=== PATIENT | female | born 1960 | race Caucasian/White ===

== ENCOUNTER 2024-11-06 15:56 | Emergency (ER) | payer MEDICARE, OTHER, SELFPAY ==
[2024-11-06 16:14] VITALS: BP 149/96
--- NOTE | 2024-11-06 16:21 | ED.GENMED ---
ED Provider Triage
<Tawanda Mancia PA-C - Last Filed: 11/06/24 16:22>
-
Patient seen by provider in Triage?: Seen in Triage
Attestation: A medical screening examination has been initiated by a qualified medical provider. Based on the assessment performed at this time, it has been determined that an emergent medical condition may exist and the patient has been informed
that further medical evaluation and possible additional diagnostic testing may be needed.
HPI: 63-year-old female with history of MS prior appendectomy and cholecystectomy presents with sharp pain to the right flank that radiates to the right lower abdomen. She straight cath several times a day. She denies fevers or chills. She denies
any change in the urine appearance. Consider renal colic versus pyelonephritis versus UTI started labs urinalysis and order noncontrast CT of abdomen and pelvis
GENERAL: Alert , in no apparent distress
EYE: No visual abnormalities.
NECK: Trachea midline
ENT: No visible abnormalities.
LUNGS: No acute respiratory distress
NEUROLOGICAL: Alert and oriented
SKIN: Skin intact. No visible changes.
MUSCULOSKELETAL: Moving extremities normally
PSYCH: Normal and appropriate interaction.
This is a medical evaluation conducted in person to initiate diagnostic evaluation and provide initial therapeutics. Please see further documentation by the treating clinician.
History of Present Illness
<Tawanda Mancia PA-C - Last Filed: 11/06/24 16:22>
General
Chief Complaint: Abdominal Pain
Time Seen by Provider: 11/06/24 21:06
<Guille Mendez DO - Last Filed: 11/06/24 22:42>
History of Present Illness
History of Present Illness:
TIME OF INITIAL ENCOUNTER: 9:10 PM
HPI: The patient presents due to rather severe pain in the right side of the lower abdomen/inguinal region. Of note the patient did have a rash to the bilateral lumbar region and there was some concern for the possibly shingles. That rash is
nearly completely resolved. Last night, the pain became really severe. The pain worsened when she abducts the right lower extremity at the hip when she was trying to self cath (history of MS).
EXAM:
GENERAL: The patient appears uncomfortable and primarily prefers to lay on her left side
HEENT: Moist oral mucosa
CARDIOVASCULAR: No murmurs, normal heart rate, regular rhythm, No chest wall tenderness
PULMONARY: No respiratory distress, breath sounds are clear and equal
ABDOMEN: Soft with no peritoneal signs, moderate tenderness to the entire right side of the abdomen and lower abdomen tenderness
NEUROLOGIC: Fair strength all extremities, no coordination deficits
PSYCHIATRIC: Appropriate mental status, normal insight and judgement
EXTREMITIES: Nontender, no edema, moves all extremities equally, borderline positive straight leg raise on the right when she does have pain with passive range of motion and active range of motion at the right hip
SKIN: Scant pustules noted to the lumbar region, no significant skin lesions to the anterior abdominal wall
NUMBER AND COMPLEXITY OF PROBLEMS ADDRESSED AT THE ENCOUNTER
� Chronic conditions affecting care: MS, has had PE, high blood pressure, has had VT
� Acute Exacerbation and/or Progression of Chronic Illness: This is an acute problem
� Differential Diagnosis includes: Ureteral stone, UTI, pyelonephritis, musculoskeletal etiology
AMOUNT AND/OR COMPLEXITY OF DATA TO BE REVIEWED AND ANALYZED
� I performed an independent evaluation of and my interpretation is:
EKG:
CT: CAT scan of the abdomen pelvis showed no clear cause for her pain. A small hiatal hernia was noted. She has had cholecystectomy. Diverticulosis is noted with no sign of diverticulitis.
X-rays:
Laboratory Studies: White count 3.5, hemoglobin normal, chemistries unremarkable, positive nitrite but only 0-2 white cells
Other:
� Review of other/old records: I reviewed records, the patient had endoscopy in 2022
� Clinical information was obtained by an independent historian: None needed
� Prescriptions/Medications Considered but not given: Offered and considered narcotic analgesia of the patient declines
� Further testing considered but not performed:
RISK OF COMPLICATIONS AND/OR MORBIDITY OR MORTALITY OF PATIENT MANAGEMENT
� Social determinants of health affecting care:Lives at home, drove herself here, uses a cane
� Discussion with other providers:
� Escalation of care including admission/observation vs risk of discharge considered: The cause of patient's symptoms is unclear. She has been trying ibuprofen at home without improvement. Will give a dose of IM Toradol here.
Given the possibility of an orthopedic etiology, have given her the contact information for local Ortho
ANY OTHER UPDATES:
Phy Exam
<Guille Mendez DO - Last Filed: 11/06/24 22:42>
Physical Exam
Physical Exam:
See HPI
Course
<Tawanda Mancia PA-C - Last Filed: 11/06/24 16:22>
Orders/Labs/Results
Orders:
Orders
11/06/24 16:20
CT Abd/pel Without Iv Or Oral Urgent
Comment:
Reason For Exam: right flank pain
11/06/24 16:26
Ondansetron Orally Disint [Zofran Odt (Orally Disintegrating)] 4 mg PO NOW STA
11/06/24 16:27
Ondansetron Orally Disint [Zofran Odt (Orally Disintegrating)] 4 mg .ROUTE .STK-MED ONE
11/06/24 16:32
Complete Blood Count/With Diff Urgent
Comprehensive Metabolic Panel Urgent
11/06/24 20:03
Urinalysis Reflex To Culture Urgent
Date Specimen was Collected: 11/06/24
Time Specimen was Collected: 20:00
Urine Microscopic Reflex Cult Urgent
Urine Culture Urgent
THAD Source: U
Specimen Description:
Date Specimen was Collected: 11/06/24
Time Specimen was Collected: 20:00
11/06/24 21:30
Ketorolac [Toradol] 30 mg IM NOW STA
Abnormal Lab Results
11/06/24 11/06/24
16:32 20:03
WBC 3.5 L 10^3/uL
(4.8-10.8)
Absolute Lymphs (auto) 0.7 L 10^3/uL
(1.2-3.4)
Lymphocytes % 19.3 L %
(20.5-51.1)
BUN 25 H mg/dl
(7-17)
Total Protein 8.3 H g/dl
(6.3-8.2)
Urine Nitrite (Reflex) Positive A
(Negative)
Urine Bacteria (Reflex) Many A
(Negative)
11/06/24 16:32
11/06/24 16:32
Vital Signs
Initial and Last Documented VS:
Initial Vital Signs
Temp Pulse Resp BP Pulse Ox
36.5 C 75 16 149/96 100
11/06/24 16:14 11/06/24 16:14 11/06/24 16:14 11/06/24 16:14 11/06/24 16:14
Last Documented Vital Signs
Temp Pulse Resp BP Pulse Ox
36.5 C 70 16 144/79 99
11/06/24 16:14 11/06/24 21:55 11/06/24 16:14 11/06/24 21:55 11/06/24 21:55
<Guille Mendez, DO - Last Filed: 11/06/24 22:42>
Orders/Labs/Results
Orders:
Orders
11/06/24 16:20
CT Abd/pel Without Iv Or Oral Urgent
Comment:
Reason For Exam: right flank pain
11/06/24 16:26
Ondansetron Orally Disint [Zofran Odt (Orally Disintegrating)] 4 mg PO NOW STA
11/06/24 16:27
Ondansetron Orally Disint [Zofran Odt (Orally Disintegrating)] 4 mg .ROUTE .STK-MED ONE
11/06/24 16:32
Complete Blood Count/With Diff Urgent
Comprehensive Metabolic Panel Urgent
11/06/24 20:03
Urinalysis Reflex To Culture Urgent
Date Specimen was Collected: 11/06/24
Time Specimen was Collected: 20:00
Urine Microscopic Reflex Cult Urgent
Urine Culture Urgent
THAD Source: U
Specimen Description:
Date Specimen was Collected: 11/06/24
Time Specimen was Collected: 20:00
11/06/24 21:30
Ketorolac [Toradol] 30 mg IM NOW STA
Abnormal Lab Results
11/06/24 11/06/24
16:32 20:03
WBC 3.5 L 10^3/uL
(4.8-10.8)
Absolute Lymphs (auto) 0.7 L 10^3/uL
(1.2-3.4)
Lymphocytes % 19.3 L %
(20.5-51.1)
BUN 25 H mg/dl
(7-17)
Total Protein 8.3 H g/dl
(6.3-8.2)
Urine Nitrite (Reflex) Positive A
(Negative)
Urine Bacteria (Reflex) Many A
(Negative)
11/06/24 16:32
11/06/24 16:32
Vital Signs
Initial and Last Documented VS:
Initial Vital Signs
Temp Pulse Resp BP Pulse Ox
36.5 C 75 16 149/96 100
11/06/24 16:14 11/06/24 16:14 11/06/24 16:14 11/06/24 16:14 11/06/24 16:14
Last Documented Vital Signs
Temp Pulse Resp BP Pulse Ox
36.5 C 70 16 144/79 99
11/06/24 16:14 11/06/24 21:55 11/06/24 16:14 11/06/24 21:55 11/06/24 21:55
<Guille Romeo Mendez DO - Last Filed: 11/06/24 22:42>
*Critical Care Note
Total Time (30-74mins, 75-104mins- exclusive of procedures): Not Applicable
ED Attending Note
<Tawanda Mancia PA-C - Last Filed: 11/06/24 16:22>
-
Portions of this chart may have been created with voice recognition software.� Occasional wrong word or��sound alike� substitutions may have occurred due to the inherent limitations of voice recognition software.
Discharge Plan
Departure
Patient Disposition: Home (Routine Discharge)
Date of Disposition: 11/06/24
Time of Disposition: 21:31
Patient with high blood pressure during this ER visit?: Yes
Discharge Problem:
Abdominal pain
Instructions: Abdominal Pain
Referrals:
Maurizio Armenta MD [Active] - Follow up in 2-3 days
Activity Restrictions/Additional Instructions:
The cause of your symptoms is unclear. It is possible it could be related to an oblique abdominal muscle strain, hip flexor strain, bursitis. It seems less likely that is related to shingles. I have given the contact information for local
orthopedist, Dr. Armenta, in case it could be more of an orthopedic issue. On the CAT scan, a small hiatal hernia is seen but this would not be the cause of your symptoms. The urinary bladder is normal. A small fibroid of the uterus is noted but
this also would not be the cause of your pain. The bowel loops were normal. Although the appendix not visualized there was no sign of inflammation in the right lower quadrant. Incidentally, the radiologist did note a spiculated 1.4 cm nodule in
the anterior aspect of the left lower lobe. For this, I recommend that you follow with your primary care doctor.
Interventions
Interventions:
*Risk Screen - Suicide Last Done: 11/06/24 16:14
*General Assessment Last Done: 11/06/24 16:14
*Neglect/Abuse Screening Last Done: 11/06/24 16:14
ED- Fall Risk Assessment Last Done: 11/06/24 21:56
*ED COVID-19 Vaccine History Last Done: 11/06/24 16:14
*Nursing Disposition Last Done: 11/06/24 21:56
GS-Iusfox-Zzknypqwan Assessment Last Done: 11/06/24 21:55
Discharge Date and Time
Discharge Date/Time: 11/06/24 21:56
Print Language: AFGHAN
[2024-11-06] MEDS: ZOFRAN ODT (ORALLY DISINTEGRATING) 4 MG PO (16:28)
[2024-11-06 16:41] LABS: % Basophils 0.3 % (0-2); % Immature Granulocytes 0.3 % (0-0.5); % Lymphocytes 19.3 % (20.5-51.1); % Monocytes 8.1 % (1.7-9.3); Absolute Eosinophils 0.1 10^3/uL (0-0.7); Absolute Lymphocytes 0.7 10^3/uL (1.2-3.4); Absolute Monocytes 0.3 10^3/uL (0.1-0.6); Absolute Neutrophils 2.4 10^3/uL (1.4-6.5); Hematocrit 38.6 % (37.0-47.0); Hemoglobin 13.5 g/dL (12.0-16.0); Mean Corpuscular Hgb 29.2 pg (27.0-31.0); Mean Corpuscular Volume 83.5 fL (81.0-99.0); Mean Platelet Volume 8.6 fL (7.4-10.4); Nucleated Red Blood Cells % 0 %; Platelet Count 160 10^3/uL (130-400); Red Blood Cell Count 4.62 10^6/uL (4.20-5.40); Red Cell Dist. Width 12.1 % (11.5-14.5); White Blood Cell Count 3.5 10^3/uL (4.8-10.8)
[2024-11-06 16:57] LABS: ALT (SGPT) 16 U/L (0-35); AST (SGOT) 21 U/L (14-36); Alkaline Phosphatase 83 U/L (38-126); Blood Urea Nitrogen 25 mg/dl (7-17); Calcium 8.8 mg/dl (8.4-10.2); Carbon Dioxide 28 mmol/L (22-30); Chloride 101 mmol/L (98-107); Glucose 93 mg/dl (70-99); Potassium 4.3 mmol/L (3.5-5.1); Sodium 138 mmol/L (135-145); Total Bilirubin 0.9 mg/dl (0.2-1.3); Total Protein 8.3 g/dl (6.3-8.2); eGFR > 60.00
[2024-11-06 20:11] LABS: Urine Albumin Negative (Neg - Trace); Urine Bilirubin Negative (Negative); Urine Character Clear (Clear); Urine Color Yellow; Urine Glucose Negative (Negative); Urine Ketone Negative (Negative); Urine Leukocyte Negative (Negative); Urine Nitrite Positive (Negative); Urine Occult Blood Negative (Negative); Urine Urobilinogen Negative (Neg - 1+)
[2024-11-06 20:19] LABS: Urine Bacteria Many (Negative); Urine Red Blood Cell 0-2 /HPF (0-2); Urine White Cell 0-2 /HPF (0-5)
[2024-11-06] MEDS: TORADOL 30 MG IM (21:42)
[2024-11-06 21:55] VITALS: BP 144/79
== END 2024-11-06 21:56 | disposition home or self-care (01) ==
LOC: EMR 15:56
PROVIDERS: Physician Assistant; EMERGENCY PHYSICIAN Emergency Medicine; FAMILY PHYSICIAN Internal Medicine
DX: R10.9 Unspecified abdominal pain (principal); G35 Multiple sclerosis; Z90.49 Acquired absence of other specified parts of digestive tract
CPT/HCPCS: 99284; 96372; 74176; 80053; 81003; 81015; 85025; 87077; 87086; 87186

== ENCOUNTER → 2025-07-10 16:02 | Outpatient (REF) | payer MEDICARE, OTHER, SELFPAY | LOC: PAVMRI 16:02 | PROVIDERS: ATTENDING PHYSICIAN Physical Medicine & Rehabilitation; FAMILY PHYSICIAN Internal Medicine | DX: M54.16 Radiculopathy, lumbar region (principal); M25.551 Pain in right hip | CPT/HCPCS: 72148; 73721 ==